=== PATIENT | male | born 1960 | race American Indian/Alaskan Native ===

== ENCOUNTER 2016-11-26 11:46 | Outpatient (CLI) | payer OTHER ==
[2016-11-26] MEDS ORDERED: PROVENTIL IH ONE (12:15)
[2016-11-26 12:53] LABS: Blood Urea Nitrogen 16 mg/dL (9-20)
[2016-11-26] MEDS ORDERED: NACL ONE (13:32)
--- NOTE | 2016-11-26 14:52 | Cat Scan Report ---
CT CHEST WITH AND WITHOUT CONTRAST: HISTORY: Hilar adenopathy, dyspnea. TECHNIQUE: Helical CT before and after IV contrast. Sagittal and coronal reformatted images. FINDINGS: No comparison. There is no evidence for hilar or mediastinal adenopathy on CT. There are multiple calcified left hilar lymph nodes and a calcified granuloma in the left upper lobe. The thyroid gland, tracheobronchial tree, esophagus, heart, pericardium and mediastinal vessels are within normal limits. There is minimal patchy infiltrative changes in the posterior and medial segments of the left lower lobe. I suppose an early pneumonia could be considered. The remainder of the lungs are clear. No parenchymal lung disease is appreciated. No pleural effusion or pneumothorax. The bony structures are intact. IMPRESSION: No evidence for pathologic or suspicious mediastinal adenopathy. Calcified left hilar lymph nodes and calcified granuloma in the left upper lobe consistent with chronic granulomatous disease. Mild patchy infiltrate at the left lung base. This could represent atelectatic changes or early infiltrate. Please correlate with the patient's clinical presentation.
--- NOTE | 2016-11-28 04:21 | Pulmonary Function Test ---
TopofForm FVC of 2.32 L with 54% of predicted. FEV1 of 2.10 L with ratio of 90%. F25/75 with 3.45 L per second or 105% of predicted. MVV of 61%. Post bronchodilator therapy, now statistically significant response noted. LUNG VOLUMES: Total lung capacity of 60% for 4.35 L. Total lung capacity of 2.17 L with 50% of predicted. Diffusion capacity was 21.12 mL per minute per mmHg with 62% of predicted. INTERPRETATION: evidence of moderate restrictive ventilatory defect was noted. There is no evidence of airway reactivity. There is also loss of function in alveolar unit. Clinical correlation is suggested.BottomofForm JOB# [id number] BOGDAN/RADHA
== END 2016-11-26 11:47 | disposition home or self-care (01) ==
LOC: CT 11:46
PROVIDERS: ATTEND Internal Medicine
DX: I11.0 Hypertensive heart disease with heart failure (principal); E11.9 Type 2 diabetes mellitus without complications; R59.0 Localized enlarged lymph nodes; J84.10 Pulmonary fibrosis, unspecified; R91.8 Other nonspecific abnormal finding of lung field
CPT/HCPCS: 36415; 71270; 82565; 84520; 94060; 94640; 94727; 94729; Q9967